=== PATIENT | female | born 2000 | race African-American/Black ===

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

== ENCOUNTER 2018-07-09 20:04 | Emergency (ER) | payer SELFPAY ==
[~2018-07-09] VITALS: Ht 157.5 cm; Wt 48.5 kg
[~2018-07-09 20:04] MED LIST: AMOXICILLIN500 MG ORAL
[2018-07-09 20:18] VITALS: BP 105/74
--- NOTE | 2018-07-09 20:18 | NUR ---
ED Nurse Note: pt walked in c/o sorethroat for couple of days, denies other sx. pt resp even and unlabored on RA, airway intact, VSS, will cont monitor.
[2018-07-09] MEDS ORDERED: Bicillin LA 1.2MMU/2ML SYR IM ONE (20:45)
--- NOTE | 2018-07-09 20:55 | Emergency Room Report ---
History of Present Illness General Chief Complaint: Sore Throat Source: Patient Present Illness HPI This patient complains of sore throat for the past 4 days. She states that she noted this morning that her tonsils were large and there was a white patches all over them. She has a history of recurrent strep pharyngitis. She has had subjective fever and chills. She denies chest pain or shortness of breath. She denies cough or congestion. She denies abdominal pain. She has no other complaints. Allergies: Coded Allergies: No Known Allergies (Unverified , 11/23/17) Patient History Past Medical History: none Social History: Denies: smoking, alcohol use, drug use Last Menstrual Period: Jun 11 2018 Now: No Reviewed Nursing Documentation: PMH: Agreed; PSxH: Agreed Nursing Documentation-PMH Hx COPD: Yes - Strep throat Review of Systems All Other Systems: negative except mentioned in HPI Physical Exam Vital Signs Date Time Temp Pulse Resp B/P (MAP) Pulse Ox O2 Delivery O2 Flow Rate FiO2 07/09/18 20:15 99.0 91 19 105/74 96 Room Air Sp02 EP Interpretation: reviewed, normal General Appearance: no apparent distress, alert, GCS 15, non-toxic Head: normocephalic, atraumatic Eyes: bilateral eye normal inspection, bilateral eye PERRL ENT: hearing grossly normal, no angioedema, normal voice, uvula midline, moist mucus membranes, tonsillar swelling, tonsillar exudate Neck: full range of motion, supple/symm/no masses Respiratory: chest non-tender, lungs clear, normal breath sounds, no respiratory distress, no retraction, no accessory muscle use, speaking full sentences Cardiovascular #1: regular rate, rhythm, no edema Gastrointestinal: normal bowel sounds, non tender, soft, non-distended, no guarding, no rebound Rectal: deferred Musculoskeletal: back normal, gait/station normal, normal range of motion, non- tender Neurologic: alert, oriented x3, responsive, motor strength/tone normal, sensory intact, speech normal Psychiatric: judgement/insight normal, memory normal, mood/affect normal, no suicidal/homicidal ideation Skin: normal color, no rash, warm/dry, well hydrated Medical Decision Making Diagnostic Impression: Primary Impression: Strep pharyngitis ER Course This patient has a clinical presentation consistent with strep pharyngitis. Physical exam is consistent with this etiology. There is no evidence of peritonsillar abscess or deep neck abscess. There is no airway edema. Overall , this patient had a very benign examination. The patient was given 1.2 million units IM penicillin. The patient is instructed to get cjnd-ilp-vbkeriw lozenges and aocc-uyv-imvmjra Motrin. The patient was given return precautions and followup instructions. Last Vital Signs Date Time Temp Pulse Resp B/P (MAP) Pulse Ox O2 Delivery O2 Flow Rate FiO2 07/09/18 20:15 99.0 91 19 105/74 96 Room Air Status: improved Disposition: HOME, SELF-CARE Condition: Improved Patient Instructions: Strep Throat Eneida Barros DO Jul 09, 2018 20:55
--- NOTE | 2018-07-09 21:09 | NUR ---
ED Nurse Note: pt cleared to be d/c per ERMD, pt discharge and aftercare instruction provided, pt education done via discussion and handout, pt advised to follow up with pcp or return to ed if sx worsen or new sx develop, pt verbalized understanding hardik francis with plan, vss, ambulatory w/ steady gait, left w/ all belongings, wristband removed.
[2018-07-09 21:11] VITALS: BP 106/52
== END 2018-07-09 21:14 | disposition home or self-care (01) ==
LOC: EMR 20:46
DX: J02.0 Streptococcal pharyngitis (principal)
CPT/HCPCS: 96372; 99283; J0570; J0561

== ENCOUNTER 2018-07-11 14:08 | Emergency (ER) | payer SELFPAY ==
[~2018-07-11] VITALS: Ht 157.5 cm; Wt 48.1 kg
[2018-07-11] MEDS ORDERED: NKM (14:17)
[2018-07-11 14:22] VITALS: BP 123/73
--- NOTE | 2018-07-11 14:25 | NUR ---
ED Nurse Note: Patient walked into ED c/o blonnd tinged vomit x 1 time. patient was discahrged from this ED earlier this week for strep throat, patient presents with an elevated temperature of 100.0 at time of arrival. rates her pain a 7/10 abdominal pain. patient is alert and oriented x4, ambulatory with a steady gait, VSS
[2018-07-11] MEDS ORDERED: D5NS 1,000 ML IV ONE (14:30)
[2018-07-11 14:44] LABS: APPEARANCE,URINE SLIGHTLY CLOUDY; BASOPHILS % (AUTO) 0.5 % (0.0-2.0); BILIRUBIN, URINE NEGATIVE (NEGATIVE); EOSINOPHILS % (AUTO) 0.1 % (0.0-3.0); GLUCOSE, URINE (UA) NEGATIVE (NEGATIVE); HEMATOCRIT 43.5 % (37.0-47.0); HEMOGLOBIN 14.5 G/DL (12.0-16.0); KETONES,URINE 4+ (NEGATIVE); LEUKOCYTE ESTERASE ,URINE 1+ (NEGATIVE); LYMPHOCYTES % (AUTO) 11.6 % (20.0-45.0); MEAN CORPUSCULAR VOLUME 91 FL (80-99); MONOCYTES % (AUTO) 7.4 % (1.0-10.0); NEUTROPHILS % (AUTO) 80.4 % (45.0-75.0); NITRITE,URINE NEGATIVE (NEGATIVE); PH,URINE 5 (4.5-8.0); PLATELET COUNT 220 K/UL (150-450); PROTEIN,URINE 2+ (NEGATIVE); RED BLOOD COUNT 4.75 M/UL (4.20-5.40); RED CELL DISTRIBUTION WIDTH 11.1 % (11.6-14.8); UROBILINOGEN,URINE NORMAL MG/DL (0.0-1.0); WHITE BLOOD COUNT 8.9 K/UL (4.8-10.8)
--- NOTE | 2018-07-11 14:45 | Emergency Room Report ---
History of Present Illness General Chief Complaint: Vomiting Source: Patient Present Illness HPI Patient was seen 2 days ago and diagnosed with strep. She was treated with penicillin. She vomited when she got home. She's felt chills intermittently since then. She's taken Advil. Today she felt nauseated and threw up and there was blood. She's been drinking blue Gatorade but not much else. She's been constipated not moving her bowels and denies any melena. She denies any pain. She's never been diagnosed with gastritis. She's not sure if there is been drainage from her tonsils. She took some DayQuil before coming in today. The pain in her stomach is rated 7/10, epigastric and not radiating. It is somewhat pressure, but also burning. Her last period was at the end of last month. She does not believe she is as she's taking control at this time. No dysuria. She has slight pain at the site where the penicillin shot was given. Allergies: Coded Allergies: No Known Allergies (Unverified , 11/23/17) Patient History Past Medical History: see triage record Social History: Denies: smoking Social History Narrative from home Last Menstrual Period: 06/11/18 Reviewed Nursing Documentation: PMH: Agreed; PSxH: Agreed Nursing Documentation-PMH Past Medical History: No History, Except For Hx COPD: Yes - Strep throat Review of Systems All Other Systems: negative except mentioned in HPI Physical Exam Vital Signs Date Time Temp Pulse Resp B/P (MAP) Pulse Ox O2 Delivery O2 Flow Rate FiO2 07/11/18 14:15 100.0 109 18 109/71 97 Room Air Sp02 EP Interpretation: reviewed, normal General Appearance: well appearing, no apparent distress, GCS 15 Head: normocephalic Eyes: bilateral eye normal inspection, bilateral eye PERRL ENT: moist mucus membranes, pharyngeal erythema, tonsillar exudate Neck: supple Respiratory: lungs clear, normal breath sounds Cardiovascular #1: regular rate, rhythm Cardiovascular #2: 2+ radial (R) Gastrointestinal: normal inspection, normal bowel sounds, non tender, no mass, non-distended, scaphoid Musculoskeletal: back normal, gait/station normal, normal range of motion Neurologic: alert, oriented x3, grossly normal Psychiatric: mood/affect normal Skin: normal inspection, warm/dry Medical Decision Making Diagnostic Impression: Primary Impression: Hematemesis Qualified Codes: K92.0 - Hematemesis Additional Impression: Partially treated strep pharyngitis ER Course Patient presents with vomiting blood while being treated for strep pharyngitis. Differential includes Sejal-Bey tear, gastritis, blood from the upper pharynx amongst others. Clinically she's not bind depleted at this time although she is slightly pale. Labs are indicated. In addition IV hydration, Pepcid, Zofran and Tylenol are also indicated. Labs with normal WBC. CMP normal. Lipase normal. Patient improved with treatment. No more vomiting. Tolerating PO intake. Patient stable for outpatient observation and treatment. Labs Test 07/11/18 14:30 White Blood Count 8.9 K/UL (4.8-10.8) Red Blood Count 4.75 M/UL (4.20-5.40) Hemoglobin 14.5 G/DL (12.0-16.0) Hematocrit 43.5 % (37.0-47.0) Mean Corpuscular Volume 91 FL (80-99) Mean Corpuscular Hemoglobin 30.6 PG (27.0-31.0) Mean Corpuscular Hemoglobin Concent 33.4 G/DL (32.0-36.0) Red Cell Distribution Width 11.1 % (11.6-14.8) Platelet Count 220 K/UL (150-450) Mean Platelet Volume 7.7 FL (6.5-10.1) Neutrophils (%) (Auto) 80.4 % (45.0-75.0) Lymphocytes (%) (Auto) 11.6 % (20.0-45.0) Monocytes (%) (Auto) 7.4 % (1.0-10.0) Eosinophils (%) (Auto) 0.1 % (0.0-3.0) Basophils (%) (Auto) 0.5 % (0.0-2.0) Prothrombin Time 10.6 SEC (9.30-11.50) Prothromb Time International Ratio 1.0 (0.9-1.1) Activated Partial Thromboplast Time 34 SEC (23-33) Urine Color Yellow Urine Appearance Slightly cloudy Urine pH 5 (4.5-8.0) Urine Specific [place] 1.025 (1.005-1.035) Urine Protein 2+ (NEGATIVE) Urine Glucose (UA) Negative (NEGATIVE) Urine Ketones 4+ (NEGATIVE) Urine Blood 4+ (NEGATIVE) Urine Nitrite Negative (NEGATIVE) Urine Bilirubin Negative (NEGATIVE) Urine Urobilinogen Normal MG/DL (0.0-1.0) Urine Leukocyte Esterase 1+ (NEGATIVE) Urine RBC 2-4 /HPF (0 - 2) Urine WBC 2-4 /HPF (0 - 2) Urine Squamous Epithelial Cells Moderate /LPF (NONE/OCC) Urine Bacteria Occasional /HPF (NONE) Sodium Level 136 MMOL/L (136-145) Potassium Level 3.6 MMOL/L (3.5-5.1) Chloride Level 97 MMOL/L (98-107) Carbon Dioxide Level 24 MMOL/L (21-32) Anion Gap 15 mmol/L (5-15) Blood Urea Nitrogen 12 mg/dL (7-18) Creatinine 1.1 MG/DL (0.55-1.30) Estimat Glomerular Filtration Rate > 60 mL/min (>60) Glucose Level 81 MG/DL (74-106) Calcium Level 9.2 MG/DL (8.5-10.1) Total Bilirubin 0.4 MG/DL (0.2-1.0) Aspartate Amino Transf (AST/SGOT) 15 U/L (15-37) Alanine Aminotransferase (ALT/SGPT) 13 U/L (12-78) Alkaline Phosphatase 86 U/L (46-116) Total Protein 8.8 G/DL (6.4-8.2) Albumin 3.9 G/DL (3.4-5.0) Globulin 4.9 g/dL Albumin/Globulin Ratio 0.8 (1.0-2.7) Lipase 104 U/L (73-393) Last Vital Signs Date Time Temp Pulse Resp B/P (MAP) Pulse Ox O2 Delivery O2 Flow Rate FiO2 07/11/18 16:44 99.7 95 18 125/75 97 Room Air Status: improved Disposition: HOME, SELF-CARE Condition: Improved Scripts Acetaminophen (Tylenol) 325 Mg Tablet 650 MG ORAL Q6H PRN for fever or pain, #20 TAB 0 Refills Prov: Karlos Bolden MD 07/11/18 Ondansetron Odt* (ZOFRAN ODT*) 4 Mg Tab.rapdis 4 MG BC EVERY 8 HOURS, #6 TAB 1 Refill Prov: Karlos Bolden MD 07/11/18 Famotidine (PEPCID AC) 20 Mg Tablet 20 MG PO DAILY, #14 TAB Prov: Karlos Bolden MD 07/11/18 Karlos Bolden MD Jul 11, 2018 14:45
[2018-07-11 14:50] LABS: COLOR,URINE YELLOW
[2018-07-11 14:53] LABS: ANION GAP 15 mmol/L (5-15); BLOOD UREA NITROGEN 12 mg/dL (7-18); CALCIUM 9.2 MG/DL (8.5-10.1); CARBON DIOXIDE 24 MMOL/L (21-32); CHLORIDE 97 MMOL/L (98-107); CREATININE 1.1 MG/DL (0.55-1.30); POTASSIUM 3.6 MMOL/L (3.5-5.1); SODIUM 136 MMOL/L (136-145)
[2018-07-11 14:57] LABS: ALANINE AMINOTRANSFERASE 13 U/L (12-78); ALBUMIN 3.9 G/DL (3.4-5.0); ALBUMIN/GLOBULIN RATIO 0.8 (1.0-2.7); ALKALINE PHOSPHATASE 86 U/L (46-116); ASPARTATE AMINO TRANSFERASE 15 U/L (15-37); BILIRUBIN,TOTAL 0.4 MG/DL (0.2-1.0)
--- NOTE | 2018-07-11 15:25 | NUR ---
ED Nurse Note: Patients temp still remains at 100.6, Dr. Bolden aware
[2018-07-11] MEDS ORDERED: ONDANSETRON ODT4 MG BC (16:33)
[2018-07-11] MEDS ORDERED: PEPCID AC20 M2 PO (16:33)
[2018-07-11] MEDS ORDERED: TYLENOL325 MG ORAL (16:33)
[2018-07-11 16:44] VITALS: BP 125/75
--- NOTE | 2018-07-11 16:45 | NUR ---
ER DISCHARGE NOTE: Patient is cleared to be discharged per ERMD, pt is aox4, on room air, with stable vital signs. pt was given dc and prescription instructions, pt was able to verbalize understanding, pt id band and iv site removed without complications. pt is able to ambulate with steady gait. pt took all belongings.
== END 2018-07-11 16:44 | disposition home or self-care (01) ==
LOC: EMR 15:11
DX: K92.0 Hematemesis (principal); J02.0 Streptococcal pharyngitis
CPT/HCPCS: 36415; 80053; 81003; 83690; 85025; 85610; 85730; 96365; 96375; 99284; J2405; S0028

== ENCOUNTER 2018-10-23 21:44 | Emergency (ER) | payer SELFPAY ==
[~2018-10-23] VITALS: Ht 157.5 cm; Wt 52.2 kg
[~2018-10-23 21:44] MED LIST changes: +NKM; +ONDANSETRON ODT4 MG BC; +PEPCID AC20 M2 PO; +TYLENOL325 MG ORAL
[2018-10-23 21:54] VITALS: BP 104/70
--- NOTE | 2018-10-23 21:54 | NUR ---
ED Nurse Note: Patient walked into ED c/o sore throat for the past week, rates her pain a 7/10, pain unresolved by tylenol and ibuprofen, states that she does have a history of pharynghitis and strep throat. o2 sat at 100%, denies any SOB. patient is alert and oriented x4, ambulatory with a steady gait, VSS
[2018-10-23] MEDS ORDERED: ZITHROMAX250 MG ORAL (22:10)
[2018-10-23] MEDS ORDERED: IBUPROFEN600 MG ORAL (22:10)
--- NOTE | 2018-10-23 22:10 | Emergency Room Report ---
History of Present Illness General Chief Complaint: Sore Throat Source: Patient Present Illness HPI This is a 18-year-old female with a history of recurrent tonsillitis. She presents with chief complaint of sore throat and swollen tonsil. Onset for last 2 days. Worse with swallowing. Better with rest. No drooling. Subjective fever chills but no cough or congestion. No runny nose. Pain is 8 out of 10. Allergies: Coded Allergies: No Known Allergies (Unverified , 11/23/17) Patient History Past Medical History: none, see triage record, old chart reviewed Past Surgical History: none Pertinent Family History: none Social History: Denies: smoking Last Menstrual Period: 10/22/18 Now: No Immunizations: other Reviewed Nursing Documentation: PMH: Agreed; PSxH: Agreed Nursing Documentation-PMH Hx COPD: Yes - Strep throat, pharyngitis Review of Systems Eye: Denies: eye pain, blurred vision ENT: Reports: throat pain; Denies: ear pain, nose congestion, throat swelling Respiratory: Denies: cough, shortness of breath Cardiovascular: Denies: chest pain, palpitations Gastrointestinal: Denies: abdominal pain, diarrhea, nausea, vomiting Musculoskeletal: Denies: back pain, joint pain Skin: Denies: rash Neurological: Denies: headache, numbness Endocrine: Denies: increased thirst, increased urine Hematologic/Lymphatic: Denies: easy bruising All Other Systems: negative except mentioned in HPI Physical Exam Vital Signs Date Time Temp Pulse Resp B/P (MAP) Pulse Ox O2 Delivery O2 Flow Rate FiO2 10/23/18 21:51 99.0 80 18 104/70 (81) 100 Room Air Vitals normal Sp02 EP Interpretation: reviewed, normal General Appearance: well appearing, no apparent distress, alert Head: normocephalic, atraumatic Eyes: bilateral eye PERRL, bilateral eye EOMI ENT: hearing grossly normal, normal pharynx, tonsillar swelling, pharyngeal erythema, tonsillar exudate Neck: full range of motion, supple, no meningismus Respiratory: chest non-tender, lungs clear, normal breath sounds Cardiovascular #1: regular rate, rhythm, no murmur Gastrointestinal: normal bowel sounds, non tender, no mass, no organomegaly, no bruit, non-distended Musculoskeletal: back normal, gait/station normal, normal range of motion Psychiatric: mood/affect normal Medical Decision Making Diagnostic Impression: Primary Impression: Acute tonsillitis Qualified Codes: J03.90 - Acute tonsillitis, unspecified ER Course Patient with tonsillitis. Most likely strep. No evidence of peritonsillar abscess, retropharyngeal abscess or Brayden angina. This is her third or fourth time. She may benefit from a ENT referral. Last Vital Signs Date Time Temp Pulse Resp B/P (MAP) Pulse Ox O2 Delivery O2 Flow Rate FiO2 10/23/18 21:54 99.0 80 18 104/70 100 Room Air Status: unchanged Disposition: HOME, SELF-CARE Condition: Stable Scripts Azithromycin* (ZITHROMAX*) 250 Mg Tablet 250 MG ORAL DAILY, #6 TAB 0 Refills Take two tables once daily for 1 day, then one tablet once daily for 4 days. Prov: Jose Angel Carmen MD 10/23/18 Ibuprofen* (MOTRIN*) 600 Mg Tablet 600 MG ORAL THREE TIMES A DAY, #30 TAB 0 Refills Prov: Jose Angel Carmen MD 10/23/18 Patient Instructions: Tonsillitis Additional Instructions: Increase fluids. Salt water gargle. Follow-up with your doctor in a week or you may benefit from referral to ENT doctor for surgery. Return if worse. Jose Angel Carmen MD Oct 23, 2018 22:10
--- NOTE | 2018-10-23 22:15 | NUR ---
ER DISCHARGE NOTE: Patient is cleared to be discharged per ERMD, pt is aox4, on room air, with stable vital signs. pt was given dc and prescription instructions, pt was able to verbalize understanding, pt id band removed without complications. pt is able to ambulate with steady gait. pt took all belongings.
[2018-10-23 22:17] VITALS: BP 110/72
== END 2018-10-23 22:15 | disposition home or self-care (01) ==
LOC: EMR 22:14
DX: J03.90 Acute tonsillitis, unspecified (principal)
CPT/HCPCS: 99282; J7512